=== PATIENT | female | born 1980 | race Two or more races ===

== ENCOUNTER 2024-04-21 09:45 | Inpatient (IN) | payer OTHER ==
[~2024-04-21] VITALS: Ht 157.5 cm; Wt 56.7 kg
[2024-04-21] MEDS ORDERED: ALDACTONE50 MG PO (11:10)
[2024-04-24] MEDS ORDERED: POVIDONE-IODINE 118 ML BOTT TOP ONE (10:06)
[2024-04-24] MEDS ORDERED: CEFOXITIN SODIUM 2,000 MG VIAL IV ONE ×2 (10:13→17:07)
[2024-04-24] MEDS ORDERED: THROMBIN,HU/FIBRINOGEN/CALCIUM 10 ML SYRINGE TOP ONE (11:33)
[2024-04-24] MEDS ORDERED: METRONIDAZOLE/SODIUM CHLORIDE 500 MG/100 ML PIGGYBACK IV ONE ×2 (11:51→12:15)
[2024-04-24] MEDS ORDERED: ONDANSETRON HCL 2 MG/ML VIAL IV PRN (12:30)
[2024-04-24] MEDS ORDERED: RINGERS SOLUTION,LACTATED 1,000 ML IV SCH (12:30)
[2024-04-24] MEDS ORDERED: ENALAPRILAT DIHYDRATE 1.25 MG/ML VIAL IV PRN (12:45)
[2024-04-24] MEDS ORDERED: ONDANSETRON HCL 2 MG/ML VIAL ONE (13:22)
[2024-04-24 16:02] LABS: HEMATOCRIT 38.6 % (36.0-45.00); HEMOGLOBIN 12.9 g/dL (12.0-15.00); MEAN CELL VOLUME 88.2 fL (80.00-100.00); MEAN CORPUSCULAR HEMOGLOBIN 29.4 pg (27.00-32.0); MEAN CORPUSCULAR HGB CONC 33.3 g/dl (32.0-36.0); PLATELET COUNT 209 K/uL (150-450); RED BLOOD COUNT 4.37 M/uL (4.00-6.00)
[2024-04-24 16:23] LABS: CALCIUM 9.3 mg/dL (8.5-10.1); CREATININE SERUM 0.94 mg/dL (0.55-1.02); GFR 65.62; POTASSIUM 3.62 mEq/L (3.5-5.1)
[2024-04-24] MEDS ORDERED: CEFOXITIN SODIUM 2,000 MG VIAL IV SCH (17:00)
[2024-04-24] MEDS ORDERED: MORPHINE SULFATE 4 MG/ML CARTRIDGE IV SCH (18:00)
[2024-04-24] MEDS ORDERED: FAMOTIDINE/PF 20 MG/2 ML VIAL IV SCH (21:00)
[2024-04-25 01:55] LABS: HEMATOCRIT 34.2 % (36.0-45.00); HEMOGLOBIN 11.4 g/dL (12.0-15.00); MEAN CELL VOLUME 86.4 fL (80.00-100.00); MEAN CORPUSCULAR HEMOGLOBIN 28.7 pg (27.00-32.0); MEAN CORPUSCULAR HGB CONC 33.5 g/dl (32.0-36.0); PLATELET COUNT 184 K/uL (150-450); RED BLOOD COUNT 3.96 M/uL (4.00-6.00); RED CELL DISTRIBUTION WIDTH 16.1 % (11.5-14.5)
[2024-04-25 02:14] LABS: CALCIUM 8.9 mg/dL (8.5-10.1); CREATININE SERUM 0.86 mg/dL (0.55-1.02); GFR 72.71; POTASSIUM 4.08 mEq/L (3.5-5.1)
[2024-04-25] MEDS ORDERED: ENOXAPARIN SODIUM 40 MG/0.4 ML SYRINGE SUBCUTANEO SCH (09:00)
[2024-04-25] MEDS ORDERED: DOCUSATE SODIUM 100MG CAP PO SCH (09:00)
[2024-04-25] MEDS ORDERED: SPIRONOLACTONE 50 MG TABLET PO SCH (09:00)
[2024-04-25] MEDS ORDERED: OxyCODONE HCL/APAP UD (PERCOCET) PO PRN (13:15)
[2024-04-25] MEDS ORDERED: SIMETHICONE 125 MG CAPSULE PO SCH (17:00)
[2024-04-25] MEDS ORDERED: METOCLOPRAMIDE HCL 5 MG/ML VIAL IV SCH (17:00)
[2024-04-25] MEDS ORDERED: ACETAMINOPHEN 500 MG GEL..CAP PO SCH (18:00)
[2024-04-25] MEDS ORDERED: GABAPENTIN 100 MG CAPSULE PO SCH (21:00)
[2024-04-26 07:08] LABS: HEMOGLOBIN 9.8 g/dL (12.0-15.00); MEAN CELL VOLUME 86.7 fL (80.00-100.00); MEAN CORPUSCULAR HEMOGLOBIN 29.5 pg (27.00-32.0); PLATELET COUNT 161 K/uL (150-450); RED BLOOD COUNT 3.34 M/uL (4.00-6.00); RED CELL DISTRIBUTION WIDTH 15.8 % (11.5-14.5)
[2024-04-26 07:58] LABS: CREATININE SERUM 0.68 mg/dL (0.55-1.02); GFR 95.35; POTASSIUM 3.3 mEq/L (3.5-5.1)
[2024-04-26] MEDS ORDERED: POTASSIUM CHLORIDE IN WATER 100 ML IV NR (11:15)
[2024-04-26] MEDS ORDERED: DIPHENHYDRAMINE HCL 50 MG/ML VIAL 1ML IV PRN (12:00)
[2024-04-26 13:46] LABS: PH,URINE 7.5 (5.0-8.0); URINE APPEARANCE Clear; URINE BILIRRUBIN Negative (NEGATIVE); URINE BLOOD Trace; URINE COLOR Yellow; URINE GLUCOSE Negative (NEGATIVE); URINE LEUKOCYTE Negative; URINE NITRATE Negative; URINE PROTEIN Negative (NEGATIVE); URINE UROBILINOGEN 0.2 E.U./dl
[2024-04-26 13:47] LABS: URINE RBC 5.1 uL (0.0-20.8); URINE WBC 2.9 uL (0.0-23.2)
[2024-04-26 13:50] LABS: URINE BACTERIA 0 uL (0.0-1933)
[2024-04-26] MEDS ORDERED: PIPERACILLIN/TAZOBACTAM SODIUM 3.375 GM in 0.9 % SODIUM CHLORIDE 100 ML IV SCH (18:00)
[2024-04-26] MEDS ORDERED: CLONAZEPAM 1 MG TABLET PO PRN (21:00)
[2024-04-27 08:04] LABS: HEMATOCRIT 25.4 % (36.0-45.00); MEAN CELL VOLUME 87.6 fL (80.00-100.00); MEAN CORPUSCULAR HGB CONC 34.1 g/dl (32.0-36.0); PLATELET COUNT 143 K/uL (150-450); RED CELL DISTRIBUTION WIDTH 15.7 % (11.5-14.5)
[2024-04-27 08:06] LABS: HEMOGLOBIN 8.7 g/dL (12.0-15.00)
[2024-04-27 08:21] LABS: CALCIUM 8.3 mg/dL (8.5-10.1); CREATININE SERUM 0.7 mg/dL (0.55-1.02); GFR 92.21; POTASSIUM 3.62 mEq/L (3.5-5.1)
[2024-04-27] MEDS ORDERED: OxyCODONE HCL/APAP UD (PERCOCET) PO PRN (12:45)
[2024-04-27] MEDS ORDERED: GABAPENTIN 300 MG CAPSULE PO SCH (21:00)
== END 2024-04-29 11:50 | disposition home or self-care (01) | DRG 737 ==
LOC: O/R 04-24 06:32 → SURH 04-24 08:45 → OB/GYN 04-24 16:38
PROVIDERS: Internal Medicine; Obstetrics & Gynecology; ADMIT Obstetrics & Gynecology Gynecologic Oncology; ATTEND Obstetrics & Gynecology Gynecologic Oncology
PROC: 0DBW0ZZ Excision of Peritoneum, Open Approach (ICD-10-PCS; 2024-04-24)
PROC: 0UT70ZZ Resection of Bilateral Fallopian Tubes, Open Approach (ICD-10-PCS; 2024-04-24)
PROC: 0UT20ZZ Resection of Bilateral Ovaries, Open Approach (ICD-10-PCS; 2024-04-24)
PROC: 0DNW0ZZ Release Peritoneum, Open Approach (ICD-10-PCS; 2024-04-24)
PROC: 07BC0ZZ Excision of Pelvis Lymphatic, Open Approach (ICD-10-PCS; 2024-04-24)
PROC: 3E1M38Z Irrigation of Peritoneal Cavity using Irrigating Substance, Percutaneous Approach (ICD-10-PCS; 2024-04-24)
PROC: 0UT90ZZ Resection of Uterus, Open Approach (ICD-10-PCS; principal; 2024-04-24 08:45)
PROC: BB24ZZZ Computerized Tomography (CT Scan) of Bilateral Lungs (ICD-10-PCS; 2024-04-26)
DX: C56.2 Malignant neoplasm of left ovary (principal); C77.5 Secondary and unspecified malignant neoplasm of intrapelvic lymph nodes; C78.6 Secondary malignant neoplasm of retroperitoneum and peritoneum; C80.1 Malignant (primary) neoplasm, unspecified; D25.0 Submucous leiomyoma of uterus; D25.2 Subserosal leiomyoma of uterus; Z20.822 Contact with and (suspected) exposure to COVID-19
CPT/HCPCS: 71275

== ENCOUNTER 2024-05-07 16:28 | Emergency (ER) | payer OTHER ==
[~2024-05-07] VITALS: Ht 157.5 cm; Wt 54.4 kg
[~2024-05-07 16:28] MED LIST: ALDACTONE50 MG PO
[2024-05-07] MEDS ORDERED: COLACE100 MG PO (17:15)
[2024-05-07] MEDS ORDERED: LOVENOX40 MG/0.4 SUBCUTANEO (17:15)
[2024-05-07] MEDS ORDERED: TOPROL XL50 M1 PO (17:16)
[2024-05-07 18:52] LABS: PH,URINE 5.5 (5.0-8.0); URINE APPEARANCE Cloudy; URINE BILIRRUBIN Small (NEGATIVE); URINE BLOOD Moderate; URINE COLOR Dark Yellow; URINE GLUCOSE Negative (NEGATIVE); URINE LEUKOCYTE Trace; URINE NITRATE Negative
[2024-05-07 18:56] LABS: HEMOGLOBIN 10.2 g/dL (12.0-15.00); MEAN CELL VOLUME 84.5 fL (80.00-100.00); MEAN CORPUSCULAR HEMOGLOBIN 28.7 pg (27.00-32.0); PLATELET COUNT 513 K/uL (150-450); RED BLOOD COUNT 3.56 M/uL (4.00-6.00); RED CELL DISTRIBUTION WIDTH 16.9 % (11.5-14.5); URINE BACTERIA 696.7 uL (0.0-1933); URINE EPITHELIAL CELLS 51.6 uL (0.0-38.8); URINE RBC 161.8 uL (0.0-20.8); URINE WBC 119.3 uL (0.0-23.2)
[2024-05-07 19:12] LABS: CALCIUM 10.2 mg/dL (8.5-10.1); CREATININE SERUM 0.68 mg/dL (0.55-1.02); GFR 95.35; POTASSIUM 3.52 mEq/L (3.5-5.1)
[2024-05-07 19:27] LABS: URINE MUCUS HEAVY; URINE PROTEIN 300 (NEGATIVE)
== END 2024-05-07 19:40 | disposition home or self-care (01) ==
LOC: ER 16:29
PROVIDERS: General Practice; Obstetrics & Gynecology Gynecologic Oncology
DX: C56.9 Malignant neoplasm of unspecified ovary (principal); Z97.8 Presence of other specified devices; Z88.6 Allergy status to analgesic agent; Z91.013 Allergy to seafood

== ENCOUNTER 2024-09-14 15:04 | Emergency (ER) | payer OTHER ==
[~2024-09-14] VITALS: Ht 157.5 cm; Wt 44.9 kg
[~2024-09-14 15:04] MED LIST changes: +COLACE100 MG PO; +LOVENOX40 MG/0.4 SUBCUTANEO; +TOPROL XL50 M1 PO
[2024-09-14] MEDS ORDERED: LASIX20 MG PO (16:32)
[2024-09-14] MEDS ORDERED: TRAM1TAB98 PO (16:33)
[2024-09-14 17:52] LABS: HEMATOCRIT 45.4 % (36.0-45.00); HEMOGLOBIN 14.9 g/dL (12.0-15.00); MEAN CELL VOLUME 80.6 fL (80.00-100.00); MEAN CORPUSCULAR HEMOGLOBIN 26.5 pg (27.00-32.0); MEAN CORPUSCULAR HGB CONC 32.8 g/dl (32.0-36.0); PLATELET COUNT 337 K/uL (150-450); RED BLOOD COUNT 5.62 M/uL (4.00-6.00)
[2024-09-14 18:11] LABS: URINE APPEARANCE Cloudy; URINE BILIRRUBIN Large (NEGATIVE); URINE BLOOD Negative; URINE COLOR Dark Yellow; URINE GLUCOSE Negative (NEGATIVE); URINE KETONE 15 (NEGATIVE); URINE LEUKOCYTE Small; URINE NITRATE Positive; URINE PROTEIN 30 (NEGATIVE)
[2024-09-14 18:14] LABS: URINE BACTERIA 532.9 uL (0.0-1933); URINE CAST 5.19 uL (0.0-1.40); URINE EPITHELIAL CELLS 67.2 uL (0.0-38.8); URINE RBC 5.8 uL (0.0-20.8); URINE WBC 89.1 uL (0.0-23.2)
[2024-09-14 18:16] LABS: ALBUMIN 3.7 gm/dL (3.4-5.0); BILIRUBIN TOTAL 2.23 mg/dL (0.3-1.2); CALCIUM 10.8 mg/dL (8.5-10.1); CREATININE SERUM 1.18 mg/dL (0.55-1.02); GFR 50.23; GLOBULINA 4.5 G/DL (2.4-3.5); POTASSIUM 3.9 mEq/L (3.5-5.1); TOTAL PROTEIN 8.2 gm/dL (6.4-8.2)
== END 2024-09-14 22:43 | disposition home or self-care (01) ==
LOC: ER 15:06
PROVIDERS: General Practice
DX: C56.9 Malignant neoplasm of unspecified ovary (principal); R18.8 Other ascites; Z88.6 Allergy status to analgesic agent; Z91.018 Allergy to other foods; C79.89 Secondary malignant neoplasm of other specified sites; Z91.041 Radiographic dye allergy status; I10 Essential (primary) hypertension; N39.0 Urinary tract infection, site not specified; E80.6 Other disorders of bilirubin metabolism

== ENCOUNTER 2024-09-19 12:28 | Inpatient (IN) | payer OTHER ==
[~2024-09-19] VITALS: Ht 152.4 cm; Wt 44.9 kg
[~2024-09-19 12:28] MED LIST changes: +LASIX20 MG PO; +TRAM1TAB98 PO
--- NOTE | 2024-09-19 12:54 | NUR ---
SE RECIBE PT ALERTA Y ORIENTADA X3 LA MISMA REFIERE VOMITOS X3 EN EL JANICE DE HOY, DEBILIDAD, ABDOMEN DISTENDIDO Y REFIERE DOLOR EN LAS NOCHES. PACIENTE VISITO NELL DE EMERGENCIA EL KAT. SE OBSERVAN OJOS AMARILLOS Y PIEL AMARILLENTA. PTE DE CANCER DE OVARIOS.
[2024-09-19] MEDS ORDERED: 0.9 % SODIUM CHLORIDE 500 ML IV ONE (14:45)
[2024-09-19] MEDS ORDERED: FUROsemide 20 MG/2 ML VIAL IV ONE (14:45)
[2024-09-19] MEDS ORDERED: FAMOTIDINE/PF 20 MG/2 ML VIAL IV ONE (15:00)
--- NOTE | 2024-09-19 15:26 | NUR ---
SE ORIENTA PTE SOBRE TX MEDICO EL CUAL REFIERE ENTENDER.SE LE EXTRAEN MUESTRAS BAJO MEDIDAS ASEPTICAS,SE CANALIZA Y SE ADMINISTRAN MEDICAMENTOS EDWIN ORDEN MEDICA.
[2024-09-19 16:06] LABS: URINE APPEARANCE Cloudy; URINE BILIRRUBIN Large (NEGATIVE); URINE BLOOD Negative; URINE COLOR Orange; URINE GLUCOSE Negative (NEGATIVE); URINE KETONE Trace (NEGATIVE); URINE LEUKOCYTE Small; URINE NITRATE Positive
[2024-09-19 16:09] LABS: URINE BACTERIA 743.3 uL (0.0-1933); URINE CAST 4.58 uL (0.0-1.40); URINE EPITHELIAL CELLS 109.2 uL (0.0-38.8); URINE RBC 34.6 uL (0.0-20.8); URINE WBC 22.1 uL (0.0-23.2)
[2024-09-19 16:16] LABS: HEMATOCRIT 41.6 % (36.0-45.00); HEMOGLOBIN 13.9 g/dL (12.0-15.00); MEAN CELL VOLUME 81.1 fL (80.00-100.00); MEAN CORPUSCULAR HGB CONC 33.3 g/dl (32.0-36.0); PLATELET COUNT 299 K/uL (150-450); RED BLOOD COUNT 5.14 M/uL (4.00-6.00); RED CELL DISTRIBUTION WIDTH 20.5 % (11.5-14.5)
[2024-09-19 16:27] LABS: URINE PROTEIN 100 (NEGATIVE)
[2024-09-19 16:33] LABS: PARTIAL THROMBOPLASTIN TIME 24.5 SECONDS (22.0-34.0); PROTHROMBIN TIME 10.9 SECONDS (9.0-11.5)
[2024-09-19 16:39] LABS: ALBUMIN 3.3 gm/dL (3.4-5.0); BILIRUBIN,CONJUGATED 9.05 mg/dL (0.0-0.2); CALCIUM 10.5 mg/dL (8.5-10.1); CREATININE SERUM 1.07 mg/dL (0.55-1.02); GFR 56.23; GLOBULINA 4.1 G/DL (2.4-3.5); POTASSIUM 3.16 mEq/L (3.5-5.1); TOTAL PROTEIN 7.4 gm/dL (6.4-8.2)
[2024-09-19] MEDS ORDERED: CEFTRIAXONE SODIUM 2,000 MG VIAL IV ONE (17:00)
[2024-09-19] MEDS ORDERED: METRONIDAZOLE/SODIUM CHLORIDE 500 MG/100 ML PIGGYBACK IV ONE (17:00)
[2024-09-19 17:04] LABS: BILIRUBIN,UNCONJUGATED 1.94 mg/dL (0.0-0.6)
[2024-09-19 17:05] LABS: BILIRUBIN TOTAL 10.99 mg/dL (0.3-1.2)
[2024-09-19] MEDS ORDERED: FUROsemide 20 MG/2 ML VIAL IV SCH (17:13)
[2024-09-19] MEDS ORDERED: MINERAL OIL 30 ML BLIST.PACK PO SCH (17:24)
[2024-09-19] MEDS ORDERED: PANTOPRAZOLE SODIUM 40 MG/VIAL VIAL IV SCH (17:24)
[2024-09-19] MEDS ORDERED: DOCUSATE SODIUM 100MG CAP PO SCH (17:26)
[2024-09-19] MEDS ORDERED: ONDANSETRON HCL 4 MG in 0.9 % SODIUM CHLORIDE 50 ML IV PRN (17:30)
[2024-09-19] MEDS ORDERED: METOCLOPRAMIDE HCL 10 MG in 0.9 % SODIUM CHLORIDE 50 ML IV ONE (17:30)
[2024-09-19] MEDS ORDERED: MORPHINE SULFATE 2 MG/ML CARTRIDGE IV PRN (17:30)
[2024-09-19 18:30] VITALS: BP 100/80
[2024-09-19] MEDS ORDERED: POTASSIUM CHLORIDE IN WATER 100 ML IV SCH (21:00)
[2024-09-19] MEDS ORDERED: POTASSIUM BICARBONATE/CIT AC 25 MEQ TABLET.EFF PO ONE (23:30)
[2024-09-20] MEDS ORDERED: METRONIDAZOLE/SODIUM CHLORIDE 100 ML IV SCH (01:00)
[2024-09-20 02:15] VITALS: BP 122/84
[2024-09-20 07:58] LABS: HEMATOCRIT 37.4 % (36.0-45.00); HEMOGLOBIN 12.9 g/dL (12.0-15.00); MEAN CELL VOLUME 80.1 fL (80.00-100.00); MEAN CORPUSCULAR HEMOGLOBIN 27.6 pg (27.00-32.0); MEAN CORPUSCULAR HGB CONC 34.5 g/dl (32.0-36.0); PLATELET COUNT 253 K/uL (150-450); RED BLOOD COUNT 4.67 M/uL (4.00-6.00); RED CELL DISTRIBUTION WIDTH 21.3 % (11.5-14.5)
[2024-09-20 08:43] LABS: ALBUMIN 2.9 gm/dL (3.4-5.0); CALCIUM 9.6 mg/dL (8.5-10.1); CREATININE SERUM 0.9 mg/dL (0.55-1.02); GFR 68.66; GLOBULINA 3.2 G/DL (2.4-3.5); MAGNESIUM 1.8 mg/dL (1.8-2.4); PHOSPHOROUS 3.5 mg/dL (2.5-4.9); POTASSIUM 3.78 mEq/L (3.5-5.1); TOTAL PROTEIN 6.1 gm/dL (6.4-8.2)
[2024-09-20 08:47] LABS: BILIRUBIN TOTAL 10.53 mg/dL (0.3-1.2)
[2024-09-20] MEDS ORDERED: METOPROLOL SUCCINATE 50 MG TAB.SR.24H PO SCH (09:00)
[2024-09-20] MEDS ORDERED: BUSPIRONE HCL 15 MG TABLET PO SCH (09:00)
[2024-09-20] MEDS ORDERED: CEFTRIAXONE SODIUM 2,000 MG VIAL IV SCH (09:00)
[2024-09-20] MEDS ORDERED: ENOXAPARIN SODIUM 40 MG/0.4 ML SYRINGE SUBCUTANEO SCH (09:00)
[2024-09-20 09:22] VITALS: BP 129/83; O2SAT 100
[2024-09-20 17:54] VITALS: BP 120/85; O2SAT 97
[2024-09-21 00:14] VITALS: BP 105/72
[2024-09-21 08:00] VITALS: BP 109/78
[2024-09-21 08:22] LABS: HEMATOCRIT 37.3 % (36.0-45.00); HEMOGLOBIN 12.4 g/dL (12.0-15.00); MEAN CELL VOLUME 80.7 fL (80.00-100.00); MEAN CORPUSCULAR HEMOGLOBIN 26.7 pg (27.00-32.0); MEAN CORPUSCULAR HGB CONC 33.1 g/dl (32.0-36.0); PLATELET COUNT 270 K/uL (150-450); RED BLOOD COUNT 4.63 M/uL (4.00-6.00); RED CELL DISTRIBUTION WIDTH 20.8 % (11.5-14.5)
[2024-09-21 08:40] LABS: ALBUMIN 2.8 gm/dL (3.4-5.0); CALCIUM 9.3 mg/dL (8.5-10.1); CREATININE SERUM 1.04 mg/dL (0.55-1.02); GFR 58.11; GLOBULINA 2.9 G/DL (2.4-3.5); POTASSIUM 3.31 mEq/L (3.5-5.1); TOTAL PROTEIN 5.7 gm/dL (6.4-8.2)
[2024-09-21 08:41] LABS: BILIRUBIN TOTAL 11.17 mg/dL (0.3-1.2)
[2024-09-21] MEDS ORDERED: TUBERCULIN,PURIF.PROT.DERIV. 10 SKIN.TEST SKIN.TEST ID NR (08:45)
[2024-09-21] MEDS ORDERED: POTASSIUM CHLORIDE IN WATER 100 ML IV NR (10:00)
[2024-09-21] MEDS ORDERED: SPIRONOLACTONE 25 MG TABLET PO NR (10:45)
[2024-09-21] MEDS ORDERED: LACTULOSE 20 G/30 ML BLIST.PACK PO NR (10:45)
[2024-09-21 18:12] VITALS: BP 117/85; O2SAT 98
[2024-09-22 00:30] VITALS: BP 119/84; O2SAT 98
[2024-09-22 08:21] VITALS: BP 117/83; O2SAT 97
[2024-09-22] MEDS ORDERED: SPIRONOLACTONE 25 MG TABLET PO SCH (09:00)
[2024-09-22] MEDS ORDERED: LACTULOSE 20 G/30 ML BLIST.PACK PO SCH (09:00)
[2024-09-22 16:34] VITALS: BP 129/85; O2SAT 96
[2024-09-22 21:19] VITALS: BP 145/70; O2SAT 100
[2024-09-23 00:40] VITALS: BP 93/65; O2SAT 96
[2024-09-23 06:07] VITALS: BP 100/67; O2SAT 97
[2024-09-23 06:46] LABS: HEMATOCRIT 35.3 % (36.0-45.00); HEMOGLOBIN 12.1 g/dL (12.0-15.00); MEAN CELL VOLUME 80.2 fL (80.00-100.00); MEAN CORPUSCULAR HEMOGLOBIN 27.6 pg (27.00-32.0); MEAN CORPUSCULAR HGB CONC 34.4 g/dl (32.0-36.0); PLATELET COUNT 262 K/uL (150-450); RED CELL DISTRIBUTION WIDTH 20.1 % (11.5-14.5)
[2024-09-23 07:32] LABS: ALBUMIN 2.5 gm/dL (3.4-5.0); CALCIUM 9.3 mg/dL (8.5-10.1); CREATININE SERUM 1.23 mg/dL (0.55-1.02); GFR 47.88; GLOBULINA 2.8 G/DL (2.4-3.5); PHOSPHOROUS 2.4 mg/dL (2.5-4.9); POTASSIUM 3.88 mEq/L (3.5-5.1); TOTAL PROTEIN 5.3 gm/dL (6.4-8.2)
[2024-09-23 07:44] LABS: BILIRUBIN TOTAL 11.91 mg/dL (0.3-1.2); MAGNESIUM 1.4 mg/dL (1.8-2.4)
[2024-09-23 08:31] VITALS: BP 90/60
[2024-09-23] MEDS ORDERED: METOPROLOL SUCCINATE 100 MG TAB.SR.24H PO SCH (09:00)
[2024-09-23 16:48] VITALS: BP 98/72; O2SAT 98
[2024-09-23] MEDS ORDERED: RINGERS SOLUTION,LACTATED 500 ML IV STA (18:39)
[2024-09-24 00:45] VITALS: BP 106/72; O2SAT 100
[2024-09-24 08:46] VITALS: BP 112/74
[2024-09-24] MEDS ORDERED: IOVERSOL 320 MG/1 ML 50ML DISP.SYRIN IV ONE (14:15)
[2024-09-24] MEDS ORDERED: GLUCAGON 1 MG VIAL IV ONE ×3 (14:15→14:45)
[2024-09-24] MEDS ORDERED: 0.9 % SODIUM CHLORIDE 1,000 ML IV SCH (16:00)
[2024-09-24] MEDS ORDERED: MORPHINE SULFATE 4 MG/ML VIAL IV ONE (16:45)
[2024-09-24] MEDS ORDERED: METOPROLOL SUCCINATE 50 MG TAB.SR.24H PO SCH (17:00)
[2024-09-24] MEDS ORDERED: PIPERACILLIN/TAZOBACTAM SODIUM 3.375 GM in 0.9 % SODIUM CHLORIDE 100 ML IV SCH (18:00)
[2024-09-24] MEDS ORDERED: PANTOPRAZOLE SODIUM 40 MG/VIAL VIAL IV SCH (21:00)
[2024-09-24 21:25] VITALS: BP 120/89; O2SAT 97
[2024-09-25 02:41] VITALS: BP 105/73; O2SAT 97
[2024-09-25 07:50] VITALS: BP 99/63
[2024-09-25 07:53] LABS: HEMATOCRIT 37.1 % (36.0-45.00); HEMOGLOBIN 12.7 g/dL (12.0-15.00); MEAN CELL VOLUME 81.2 fL (80.00-100.00); MEAN CORPUSCULAR HEMOGLOBIN 27.8 pg (27.00-32.0); MEAN CORPUSCULAR HGB CONC 34.2 g/dl (32.0-36.0); PLATELET COUNT 205 K/uL (150-450); RED BLOOD COUNT 4.56 M/uL (4.00-6.00); RED CELL DISTRIBUTION WIDTH 20.2 % (11.5-14.5)
[2024-09-25 08:34] LABS: ALBUMIN 2.5 gm/dL (3.4-5.0); CALCIUM 9.2 mg/dL (8.5-10.1); CREATININE SERUM 1.22 mg/dL (0.55-1.02); GFR 48.33; GLOBULINA 2.8 G/DL (2.4-3.5); PHOSPHOROUS 2.8 mg/dL (2.5-4.9); POTASSIUM 3.54 mEq/L (3.5-5.1); TOTAL PROTEIN 5.3 gm/dL (6.4-8.2)
[2024-09-25 08:38] LABS: BILIRUBIN TOTAL 14.56 mg/dL (0.3-1.2)
[2024-09-25 16:00] VITALS: BP 122/83
[2024-09-25] MEDS ORDERED: AMINO ACIDS 1 EACH TABLET PO SCH (17:00)
[2024-09-25] MEDS ORDERED: 0.9 % SODIUM CHLORIDE 1,000 ML IV SCH (20:30)
[2024-09-26 00:23] VITALS: BP 143/78; O2SAT 93
[2024-09-26 09:00] VITALS: BP 110/74; O2SAT 99
[2024-09-26 17:16] VITALS: BP 131/64
[2024-09-27 00:18] VITALS: BP 107/73
[2024-09-27 07:52] LABS: ALBUMIN 1.7 gm/dL (3.4-5.0); BILIRUBIN TOTAL 9.87 mg/dL (0.3-1.2); CALCIUM 8.5 mg/dL (8.5-10.1); CREATININE SERUM 0.76 mg/dL (0.55-1.02); GFR 83.46; GLOBULINA 2.7 G/DL (2.4-3.5); MAGNESIUM 1.6 mg/dL (1.8-2.4); POTASSIUM 3.15 mEq/L (3.5-5.1); TOTAL PROTEIN 4.4 gm/dL (6.4-8.2)
[2024-09-27 08:51] LABS: PHOSPHOROUS 1.8 mg/dL (2.5-4.9)
[2024-09-27 08:57] LABS: MEAN CELL VOLUME 82.8 fL (80.00-100.00); MEAN CORPUSCULAR HGB CONC 33.5 g/dl (32.0-36.0); PLATELET COUNT 167 K/uL (150-450); RED BLOOD COUNT 3.62 M/uL (4.00-6.00); RED CELL DISTRIBUTION WIDTH 20.2 % (11.5-14.5)
[2024-09-27 09:00] VITALS: BP 118/79; O2SAT 98
[2024-09-27 09:07] LABS: MEAN CORPUSCULAR HEMOGLOBIN 27.6 pg (27.00-32.0)
[2024-09-27] MEDS ORDERED: POTASSIUM PHOS,M-BASIC-D-BASIC 15 MM in 0.9 % SODIUM CHLORIDE 250 ML IV NR (12:15)
[2024-09-27] MEDS ORDERED: POTASSIUM CHLORIDE IN WATER 100 ML IV NR (12:45)
[2024-09-27 19:10] VITALS: BP 103/72
[2024-09-28 02:41] VITALS: BP 107/80; O2SAT 95
[2024-09-28 09:03] VITALS: BP 122/83; O2SAT 96
[2024-09-28 17:40] VITALS: BP 107/72
[2024-09-29 02:31] VITALS: BP 115/82; O2SAT 97
[2024-09-29 05:05] LABS: HEMATOCRIT 29.4 % (36.0-45.00); MEAN CELL VOLUME 84.1 fL (80.00-100.00); MEAN CORPUSCULAR HGB CONC 33.4 g/dl (32.0-36.0); PLATELET COUNT 192 K/uL (150-450); RED BLOOD COUNT 3.49 M/uL (4.00-6.00); RED CELL DISTRIBUTION WIDTH 19.9 % (11.5-14.5)
[2024-09-29 05:21] LABS: HEMOGLOBIN 9.8 g/dL (12.0-15.00)
[2024-09-29 05:28] LABS: INR 1.17; PARTIAL THROMBOPLASTIN TIME 29.1 SECONDS (22.0-34.0); PROTHROMBIN TIME 12.6 SECONDS (9.0-11.5)
[2024-09-29 05:33] LABS: ALBUMIN 1.7 gm/dL (3.4-5.0); BILIRUBIN TOTAL 5.19 mg/dL (0.3-1.2); CALCIUM 8.8 mg/dL (8.5-10.1); CREATININE SERUM 0.71 mg/dL (0.55-1.02); GFR 90.27; MAGNESIUM 1.6 mg/dL (1.8-2.4); POTASSIUM 3.51 mEq/L (3.5-5.1); TOTAL PROTEIN 4.7 gm/dL (6.4-8.2)
[2024-09-29 08:22] VITALS: BP 116/73
[2024-09-29] MEDS ORDERED: MAGNESIUM SULFATE IN WATER 4 GM/100 ML PIGGYBACK IV NR (11:10)
[2024-09-29 16:47] VITALS: BP 133/97; O2SAT 100
[2024-09-29] MEDS ORDERED: AMINO ACIDS 4.25 %/DEXTROSE 5% 1,000 ML PERIFERAL SCH (17:00)
[2024-09-29] MEDS ORDERED: FUROsemide 20 MG/2 ML VIAL IV SCH (17:56)
[2024-09-29] MEDS ORDERED: SPIRONOLACTONE 25 MG TABLET PO SCH (17:57)
[2024-09-29] MEDS ORDERED: MAGNESIUM SULFATE IN WATER 4 GM/100 ML PIGGYBACK IV ONE (18:15)
[2024-09-29 19:17] LABS: CALCIUM 9.4 mg/dL (8.5-10.1); CREATININE SERUM 0.62 mg/dL (0.55-1.02); GFR 105.56; POTASSIUM 3.72 mEq/L (3.5-5.1)
[2024-09-29 19:19] LABS: CHOL HDL RATIO 33.3 (0-5.0)
[2024-09-29 20:00] VITALS: BP 135/94; O2SAT 99
[2024-09-30] MEDS ORDERED: MORPHINE SULFATE 4 MG/ML CARTRIDGE IV PRN (00:45)
[2024-09-30 02:21] VITALS: BP 117/86; O2SAT 96
[2024-09-30] MEDS ORDERED: PANTOPRAZOLE SODIUM 40 MG/VIAL VIAL IV SCH (09:00)
[2024-09-30 09:43] VITALS: BP 135/95; O2SAT 100
[2024-09-30] MEDS ORDERED: POLYETHYLENE GLYCOL 3350 17 GM BLIST.PACK PO NR (13:50)
[2024-09-30 17:11] VITALS: BP 138/99; O2SAT 97
[2024-09-30] MEDS ORDERED: METOCLOPRAMIDE HCL 5 MG/ML VIAL IV SCH (21:22)
[2024-10-01 03:14] VITALS: BP 119/78; O2SAT 96
[2024-10-01 06:26] LABS: CHOL HDL RATIO 15.7 (0-5.0)
[2024-10-01 08:50] VITALS: BP 111/82; O2SAT 99
[2024-10-01] MEDS ORDERED: POLYETHYLENE GLYCOL 3350 17 GM BLIST.PACK PO SCH (09:00)
[2024-10-01] MEDS ORDERED: fentaNYL 12 MCG PATCH.TD72 TD SCH (13:45)
[2024-10-01] MEDS ORDERED: CLONAZEPAM 0.5 MG TABLET PO PRN (13:45)
[2024-10-01] MEDS ORDERED: NA PHOS,M-B/NA PHOS,DI-BA 1 BOTTLE ENEMA RECTAL STA (13:59)
[2024-10-01 16:23] LABS: HEMATOCRIT 31.9 % (36.0-45.00); HEMOGLOBIN 10.9 g/dL (12.0-15.00); MEAN CELL VOLUME 83.3 fL (80.00-100.00); MEAN CORPUSCULAR HEMOGLOBIN 28.5 pg (27.00-32.0); MEAN CORPUSCULAR HGB CONC 34.2 g/dl (32.0-36.0); PLATELET COUNT 233 K/uL (150-450); RED BLOOD COUNT 3.83 M/uL (4.00-6.00)
[2024-10-01 16:39] VITALS: BP 108/75
[2024-10-01 16:50] LABS: ALBUMIN 1.7 gm/dL (3.4-5.0); BILIRUBIN TOTAL 3.49 mg/dL (0.3-1.2); CREATININE SERUM 0.89 mg/dL (0.55-1.02); GFR 69.55; GLOBULINA 3.7 G/DL (2.4-3.5); MAGNESIUM 1.9 mg/dL (1.8-2.4); POTASSIUM 3.2 mEq/L (3.5-5.1); TOTAL PROTEIN 5.4 gm/dL (6.4-8.2)
[2024-10-01] MEDS ORDERED: 0.9 % SODIUM CHLORIDE 1,000 ML IV SCH (17:30)
[2024-10-01] MEDS ORDERED: POTASSIUM CHLORIDE IN WATER 100 ML IV NR (17:30)
[2024-10-01] MEDS ORDERED: METOPROLOL TARTRATE 5MG/5ML AMPUL IV SCH (17:45)
[2024-10-01] MEDS ORDERED: MORPHINE SULFATE 4 MG/ML VIAL IV PRN (21:15)
[2024-10-02] MEDS ORDERED: POTASSIUM PHOS,M-BASIC-D-BASIC 3 MM/ML VIAL IV SCH (01:00)
[2024-10-02 01:13] VITALS: BP 127/87; O2SAT 99
[2024-10-02] MEDS ORDERED: MORPHINE SULFATE 2 MG/ML CARTRIDGE IV PRN (06:45)
[2024-10-02 10:01] VITALS: BP 151/99; O2SAT 97
[2024-10-02] MEDS ORDERED: METOPROLOL TARTRATE 5MG/5ML AMPUL IV NR (11:30)
[2024-10-02] MEDS ORDERED: METOPROLOL TARTRATE 5MG/5ML AMPUL IV SCH ×2 (17:09→21:00)
[2024-10-02] MEDS ORDERED: NA PHOS,M-B/NA PHOS,DI-BA 1 BOTTLE ENEMA RECTAL ONE (17:15)
[2024-10-02] MEDS ORDERED: IOVERSOL 320 MG/1 ML 50ML DISP.SYRIN IV ONE (20:00)
[2024-10-02 23:01] VITALS: BP 116/78; O2SAT 86
[2024-10-02 23:20] VITALS: BP 116/78; O2SAT 98
[2024-10-03] MEDS ORDERED: METOCLOPRAMIDE HCL 5 MG/ML VIAL IV SCH (01:00)
[2024-10-03 04:04] VITALS: BP 110/83; O2SAT 95
[2024-10-03 07:03] LABS: HEMATOCRIT 30.9 % (36.0-45.00); HEMOGLOBIN 10.3 g/dL (12.0-15.00); MEAN CELL VOLUME 83.9 fL (80.00-100.00); MEAN CORPUSCULAR HGB CONC 33.4 g/dl (32.0-36.0); PLATELET COUNT 203 K/uL (150-450); RED BLOOD COUNT 3.68 M/uL (4.00-6.00); RED CELL DISTRIBUTION WIDTH 20.6 % (11.5-14.5)
[2024-10-03 07:21] LABS: ALBUMIN 1.4 gm/dL (3.4-5.0); CALCIUM 8.8 mg/dL (8.5-10.1); CREATININE SERUM 0.78 mg/dL (0.55-1.02); GFR 80.99; GLOBULINA 3.2 G/DL (2.4-3.5); MAGNESIUM 1.5 mg/dL (1.8-2.4); PHOSPHOROUS 2.8 mg/dL (2.5-4.9); POTASSIUM 4.16 mEq/L (3.5-5.1); TOTAL PROTEIN 4.6 gm/dL (6.4-8.2)
[2024-10-03 08:55] VITALS: BP 127/88; O2SAT 96
[2024-10-03] MEDS ORDERED: NA PHOS,M-B/NA PHOS,DI-BA 1 BOTTLE ENEMA RECTAL NR (16:45)
[2024-10-03] MEDS ORDERED: MAGNESIUM SULFATE IN WATER 4 GM/100 ML PIGGYBACK IV NR (16:45)
[2024-10-03] MEDS ORDERED: METOPROLOL TARTRATE 5MG/5ML AMPUL IV SCH (18:00)
[2024-10-03 18:11] VITALS: BP 127/79
[2024-10-04 00:52] VITALS: BP 116/84
[2024-10-04 12:12] VITALS: BP 116/78; O2SAT 98
[2024-10-04 18:57] VITALS: BP 122/84; O2SAT 99
[2024-10-05] MEDS ORDERED: METOCLOPRAMIDE HCL 5 MG/ML VIAL IV SCH (01:00)
[2024-10-05] MEDS ORDERED: ONDANSETRON HCL 4 MG in DEXTROSE 5 % IN WATER 50 ML IV SCH (01:00)
[2024-10-05 01:55] VITALS: BP 125/86; O2SAT 97
[2024-10-05 09:30] VITALS: BP 125/87; O2SAT 98
[2024-10-05] MEDS ORDERED: NA PHOS,M-B/NA PHOS,DI-BA 1 BOTTLE ENEMA RECTAL NR (14:30)
[2024-10-05 18:14] VITALS: BP 119/83; O2SAT 92
[2024-10-06 00:49] VITALS: BP 125/94; O2SAT 96
[2024-10-06 06:46] LABS: INR 1.39; PARTIAL THROMBOPLASTIN TIME 35.1 SECONDS (22.0-34.0); PROTHROMBIN TIME 14.8 SECONDS (9.0-11.5)
[2024-10-06 06:52] LABS: HEMATOCRIT 26.2 % (36.0-45.00); MEAN CORPUSCULAR HGB CONC 34.5 g/dl (32.0-36.0); PLATELET COUNT 197 K/uL (150-450); RED BLOOD COUNT 3.12 M/uL (4.00-6.00); RED CELL DISTRIBUTION WIDTH 20.3 % (11.5-14.5)
[2024-10-06 07:01] LABS: ALBUMIN 1.4 gm/dL (3.4-5.0); BILIRUBIN TOTAL 2.64 mg/dL (0.3-1.2); BILIRUBIN,CONJUGATED 2.16 mg/dL (0.0-0.2); BILIRUBIN,UNCONJUGATED 0.48 mg/dL (0.0-0.6); CALCIUM 8.7 mg/dL (8.5-10.1); CHOL HDL RATIO 5.4 (0-5.0); CREATININE SERUM 0.64 mg/dL (0.55-1.02); GFR 101.76; MAGNESIUM 1.5 mg/dL (1.8-2.4); TOTAL PROTEIN 4.4 gm/dL (6.4-8.2)
[2024-10-06 07:38] LABS: POTASSIUM 2.95 mEq/L (3.5-5.1)
[2024-10-06 07:39] LABS: PHOSPHOROUS 1.9 mg/dL (2.5-4.9)
[2024-10-06] MEDS ORDERED: POTASSIUM CHLORIDE IN WATER 40 MEQ/100 ML PIGGYBAG IV SCH (09:00)
[2024-10-06] MEDS ORDERED: MAGNESIUM SULFATE IN WATER 4 GM/100 ML PIGGYBACK IV STA (11:02)
[2024-10-06] MEDS ORDERED: POTASSIUM PHOS,M-BASIC-D-BASIC 3 MM/ML VIAL IV SCH (13:00)
[2024-10-06 17:23] VITALS: BP 123/85; O2SAT 96
[2024-10-06] MEDS ORDERED: SOD FERRIC GLUC COMPLX/SUCROSE 62.5 MG in 0.9 % SODIUM CHLORIDE 50 ML IV SCH (19:07)
[2024-10-06] MEDS ORDERED: METOCLOPRAMIDE HCL 5 MG/ML VIAL IV SCH (19:09)
[2024-10-06] MEDS ORDERED: CYANOCOBALAMIN (VITAMIN B-12) 1,000 MCG/ML VIAL IM ONE (19:15)
[2024-10-07 03:58] VITALS: BP 114/76; O2SAT 95
[2024-10-07] MEDS ORDERED: NA PHOS,M-B/NA PHOS,DI-BA 1 BOTTLE ENEMA RECTAL NR (07:00)
[2024-10-07] MEDS ORDERED: LIDOCAINE HCL 1% 10ML VIAL PERCUT ONE (07:30)
[2024-10-07] MEDS ORDERED: MAGNESIUM HYDROXIDE 30 ML BLIST.PACK PO STA (10:39)
[2024-10-07] MEDS ORDERED: LACTULOSE 20 G/30 ML BLIST.PACK PO STA (10:39)
[2024-10-07] MEDS ORDERED: MINERAL OIL 30 ML BLIST.PACK PO STA (10:39)
[2024-10-07 12:28] LABS: HEMATOCRIT 26.9 % (36.0-45.00); MEAN CELL VOLUME 83.5 fL (80.00-100.00); MEAN CORPUSCULAR HEMOGLOBIN 28.5 pg (27.00-32.0); MEAN CORPUSCULAR HGB CONC 34.1 g/dl (32.0-36.0); PLATELET COUNT 228 K/uL (150-450); RED BLOOD COUNT 3.22 M/uL (4.00-6.00)
[2024-10-07 12:29] LABS: HEMOGLOBIN 9.2 g/dL (12.0-15.00)
[2024-10-07 12:37] LABS: ALBUMIN 1.3 gm/dL (3.4-5.0); BILIRUBIN TOTAL 3.75 mg/dL (0.3-1.2); CREATININE SERUM 0.64 mg/dL (0.55-1.02); GFR 101.76; GLOBULINA 3.1 G/DL (2.4-3.5); MAGNESIUM 1.8 mg/dL (1.8-2.4); PHOSPHOROUS 3.2 mg/dL (2.5-4.9); POTASSIUM 4.7 mEq/L (3.5-5.1); TOTAL PROTEIN 4.4 gm/dL (6.4-8.2)
[2024-10-07 17:47] VITALS: BP 129/75
[2024-10-08 02:04] VITALS: BP 132/75; O2SAT 100
[2024-10-08 10:25] VITALS: BP 123/85; O2SAT 97
[2024-10-08 16:00] VITALS: BP 118/88; O2SAT 97
[2024-10-08] MEDS ORDERED: METOPROLOL TARTRATE 5MG/5ML AMPUL IV SCH (19:37)
[2024-10-09] MEDS ORDERED: METOCLOPRAMIDE HCL 5 MG/ML VIAL IV SCH (01:00)
[2024-10-09 01:07] VITALS: BP 137/94; O2SAT 100
[2024-10-09 08:40] VITALS: BP 134/96; O2SAT 96
[2024-10-09 18:23] VITALS: BP 128/86
[2024-10-10 01:05] VITALS: BP 140/98; O2SAT 99
[2024-10-10 06:25] LABS: HEMATOCRIT 29.2 % (36.0-45.00); HEMOGLOBIN 9.8 g/dL (12.0-15.00); MEAN CELL VOLUME 84.7 fL (80.00-100.00); MEAN CORPUSCULAR HEMOGLOBIN 28.3 pg (27.00-32.0); MEAN CORPUSCULAR HGB CONC 33.5 g/dl (32.0-36.0); PLATELET COUNT 205 K/uL (150-450); RED BLOOD COUNT 3.45 M/uL (4.00-6.00); RED CELL DISTRIBUTION WIDTH 20.9 % (11.5-14.5)
[2024-10-10 06:43] LABS: ALBUMIN 1.4 gm/dL (3.4-5.0); BILIRUBIN TOTAL 2.36 mg/dL (0.3-1.2); CALCIUM 8.3 mg/dL (8.5-10.1); CREATININE SERUM 0.49 mg/dL (0.55-1.02); GFR 138.5; GLOBULINA 3.1 G/DL (2.4-3.5); PHOSPHOROUS 2.1 mg/dL (2.5-4.9); POTASSIUM 3.76 mEq/L (3.5-5.1); TOTAL PROTEIN 4.5 gm/dL (6.4-8.2)
[2024-10-10 06:51] LABS: MAGNESIUM 1.2 mg/dL (1.8-2.4)
[2024-10-10 08:37] VITALS: BP 142/100; O2SAT 100
[2024-10-10] MEDS ORDERED: MAGNESIUM SULFATE IN WATER 4 GM/100 ML PIGGYBACK IV NR (10:00)
[2024-10-10] MEDS ORDERED: POTASSIUM PHOS,M-BASIC-D-BASIC 15 MM in 0.9 % SODIUM CHLORIDE 250 ML IV NR (10:39)
[2024-10-10 18:01] VITALS: BP 122/87; O2SAT 98
[2024-10-10] MEDS ORDERED: SODIUM BICARBONATE 1 MEQ/ML DISP.SYRIN 50ML IV ONE (19:30)
[2024-10-10] MEDS ORDERED: METOCLOPRAMIDE HCL 5 MG/ML VIAL IV SCH (19:30)
[2024-10-10] MEDS ORDERED: METOPROLOL SUCCINATE 100 MG TAB.SR.24H PO SCH (20:28)
[2024-10-10] MEDS ORDERED: CITRIC ACID/SODIUM CITRATE 30 ML BLIST.PACK PO SCH (21:00)
[2024-10-11 01:55] VITALS: BP 123/85; O2SAT 95
[2024-10-11 09:28] VITALS: BP 135/97; O2SAT 100
[2024-10-11] MEDS ORDERED: MORPHINE SULFATE 2 MG/ML CARTRIDGE IV ONE (13:15)
[2024-10-11 17:31] VITALS: BP 136/93; O2SAT 100
[2024-10-12 03:17] VITALS: BP 132/85; O2SAT 98
[2024-10-12 09:45] VITALS: BP 118/84; O2SAT 100
[2024-10-12] MEDS ORDERED: ALBUMIN HUMAN-25 0.25GM/ML (50ML) VIAL IV SCH (13:00)
[2024-10-12 19:00] VITALS: BP 120/78; O2SAT 99
[2024-10-13 00:55] VITALS: BP 111/75; O2SAT 100
[2024-10-13] MEDS ORDERED: MORPHINE SULFATE 2 MG/ML CARTRIDGE IV PRN (06:30)
[2024-10-13 06:42] LABS: MEAN CELL VOLUME 81.9 fL (80.00-100.00); MEAN CORPUSCULAR HGB CONC 34.4 g/dl (32.0-36.0); RED BLOOD COUNT 2.83 M/uL (4.00-6.00); RED CELL DISTRIBUTION WIDTH 21.2 % (11.5-14.5)
[2024-10-13 06:50] LABS: HEMATOCRIT 23.2 % (36.0-45.00); MEAN CORPUSCULAR HEMOGLOBIN 28.2 pg (27.00-32.0); PLATELET COUNT 114 K/uL (150-450)
[2024-10-13 06:52] LABS: INR 1.96
[2024-10-13 06:54] LABS: PARTIAL THROMBOPLASTIN TIME 46.1 SECONDS (22.0-34.0); PROTHROMBIN TIME 20.3 SECONDS (9.0-11.5)
[2024-10-13 06:58] LABS: ALBUMIN 1.9 gm/dL (3.4-5.0); BILIRUBIN TOTAL 2.13 mg/dL (0.3-1.2); BILIRUBIN,UNCONJUGATED 0.66 mg/dL (0.0-0.6); CALCIUM 8.5 mg/dL (8.5-10.1); CREATININE SERUM 0.65 mg/dL (0.55-1.02); GFR 99.96; GLOBULINA 2.6 G/DL (2.4-3.5); MAGNESIUM 1.6 mg/dL (1.8-2.4); POTASSIUM 3.61 mEq/L (3.5-5.1); TOTAL PROTEIN 4.5 gm/dL (6.4-8.2)
[2024-10-13 07:00] LABS: BILIRUBIN,CONJUGATED 1.47 mg/dL (0.0-0.2)
[2024-10-13 09:04] VITALS: BP 119/78; O2SAT 100
[2024-10-13] MEDS ORDERED: MAGNESIUM SULFATE IN WATER 50 ML IV NR (12:00)
[2024-10-13] MEDS ORDERED: METRONIDAZOLE/SODIUM CHLORIDE 100 ML IV SCH (17:00)
[2024-10-13] MEDS ORDERED: CEFTRIAXONE SODIUM 2,000 MG VIAL IV SCH (17:00)
[2024-10-13] MEDS ORDERED: METOCLOPRAMIDE HCL 5 MG/ML VIAL IV SCH (17:00)
[2024-10-13] MEDS ORDERED: METOPROLOL TARTRATE 5MG/5ML AMPUL IV SCH (18:00)
[2024-10-13 19:05] VITALS: BP 112/70
[2024-10-14 02:09] VITALS: BP 125/77; O2SAT 99
[2024-10-14 07:47] VITALS: BP 119/80; O2SAT 96
[2024-10-14 16:34] LABS: HEMATOCRIT 38.9 % (36.0-45.00); HEMOGLOBIN 13.2 g/dL (12.0-15.00); MEAN CORPUSCULAR HEMOGLOBIN 28.5 pg (27.00-32.0); RED BLOOD COUNT 4.63 M/uL (4.00-6.00); RED CELL DISTRIBUTION WIDTH 17.3 % (11.5-14.5)
[2024-10-14 16:37] LABS: PLATELET COUNT 59 K/uL (150-450)
[2024-10-14 17:50] VITALS: BP 120/80; O2SAT 100
[2024-10-14] MEDS ORDERED: BENZONATATE 100 MG CAPSULE PO SCH (21:00)
[2024-10-15 01:46] VITALS: BP 139/90; O2SAT 99
[2024-10-15 08:41] VITALS: BP 110/75; O2SAT 96
[2024-10-15] MEDS ORDERED: MORPHINE SULFATE 2 MG/ML CARTRIDGE IV PRN (09:30)
[2024-10-15] MEDS ORDERED: fentaNYL 25 MCG PATCH.TD72 TD SCH (10:45)
[2024-10-15] MEDS ORDERED: TOPROL XL100 M1 PO (12:14)
[2024-10-15] MEDS ORDERED: BUSPIRONE HCL15 MG PO (12:15)
[2024-10-15] MEDS ORDERED: METOCLOPRAMIDE10 MG PO (12:15)
[2024-10-15] MEDS ORDERED: FENTANYL1 EAC3 TD (12:16)
[2024-10-15] MEDS ORDERED: PROTEINEX LIQU473 ML PO (12:17)
[2024-10-15] MEDS ORDERED: BENZONATATE100 MG PO (12:17)
[2024-10-15 17:56] VITALS: BP 117/76; O2SAT 100
== END 2024-10-15 23:11 | disposition home or self-care (01) | DRG 444 ==
LOC: ER 12:28 → MEDI 18:25 → MEDJ 18:25 → MEDI 09-21 22:55
PROVIDERS: Internal Medicine; Nurse Practitioner Family; ADMIT Internal Medicine; ATTEND Internal Medicine
PROC: BF37ZZZ Magnetic Resonance Imaging (MRI) of Pancreas (ICD-10-PCS; 2024-09-19)
PROC: BW21ZZZ Computerized Tomography (CT Scan) of Abdomen and Pelvis (ICD-10-PCS; 2024-09-19)
PROC: 0W9G3ZZ Drainage of Peritoneal Cavity, Percutaneous Approach (ICD-10-PCS; principal; 2024-09-22)
PROC: 02HV33Z Insertion of Infusion Device into Superior Vena Cava, Percutaneous Approach (ICD-10-PCS; 2024-09-22)
PROC: 0FB98ZX Excision of Common Bile Duct, Via Natural or Artificial Opening Endoscopic, Diagnostic (ICD-10-PCS; 2024-09-24)
PROC: XFJB8A7 Inspection of Hepatobiliary Duct using Single-use Duodenoscope, New Technology Group 7 (ICD-10-PCS; 2024-09-24)
PROC: 0F798DZ Dilation of Common Bile Duct with Intraluminal Device, Via Natural or Artificial Opening Endoscopic (ICD-10-PCS; 2024-09-24)
PROC: BW40ZZZ Ultrasonography of Abdomen (ICD-10-PCS; 2024-09-29)
PROC: 0W9G3ZZ Drainage of Peritoneal Cavity, Percutaneous Approach (ICD-10-PCS; 2024-09-30)
PROC: 0FPB8DZ Removal of Intraluminal Device from Hepatobiliary Duct, Via Natural or Artificial Opening Endoscopic (ICD-10-PCS; 2024-10-02)
PROC: 0F798DZ Dilation of Common Bile Duct with Intraluminal Device, Via Natural or Artificial Opening Endoscopic (ICD-10-PCS; 2024-10-02)
PROC: BF10YZZ Fluoroscopy of Bile Ducts using Other Contrast (ICD-10-PCS; 2024-10-02)
PROC: XFJB8A7 Inspection of Hepatobiliary Duct using Single-use Duodenoscope, New Technology Group 7 (ICD-10-PCS; 2024-10-02)
PROC: 0WHG33Z Insertion of Infusion Device into Peritoneal Cavity, Percutaneous Approach (ICD-10-PCS; 2024-10-06)
PROC: 30233N1 Transfusion of Nonautologous Red Blood Cells into Peripheral Vein, Percutaneous Approach (ICD-10-PCS; 2024-10-13)
DX: K83.1 Obstruction of bile duct (principal); K65.1 Peritoneal abscess; K65.2 Spontaneous bacterial peritonitis; R18.0 Malignant ascites; C56.9 Malignant neoplasm of unspecified ovary; E46 Unspecified protein-calorie malnutrition; E87.1 Hypo-osmolality and hyponatremia; N39.0 Urinary tract infection, site not specified; N17.9 Acute kidney failure, unspecified; N13.30 Unspecified hydronephrosis; I10 Essential (primary) hypertension; E78.5 Hyperlipidemia, unspecified; D63.0 Anemia in neoplastic disease; D69.6 Thrombocytopenia, unspecified